=== PATIENT | male | born 1985 | race Caucasian/White ===

== ENCOUNTER 2020-01-23 18:23 | Inpatient (IN) | payer MEDICAID, SELFPAY ==
[2020-01-23 18:30] VITALS: BMI 22.1
--- NOTE | 2020-01-23 18:34 | W.ED.PSYCH ---
HPI - Psych General: Chief Complaint: Psychiatric Symptoms Stated Complaint: mhe/substance abuse Time Seen by Provider: 01/23/20 18:27 History of Present Illness: HPI Narrative: Patient is a 34-year-old male who was brought in by his mental health counselor for psychiatric symptoms. Mental health counselor is filling out paperwork for a 96-hour hold on patient. Patient has a history of drug abuse and drug induced psychosis. 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 Patient does not have any real recollection of why he naked and passed out on the floor. He says he just knows he woke up in the police and family in the mental health counselor were there in the room with him. Patient admits to using methamphetamines 2 days ago. He also endorses some depression and lack of sleep. He describes seeing people out in his words watching him and then he chases them away. He says these people who watch him do it to scare him because he knows some information that he should not. Patient also says he has had multiple episodes where he passes out and sees his life play out in his mind and also sees the future. He denies any SI or HI currently. He has had suicidal thoughts in the past. Patient also endorses marijuana use. Associated symptoms: Reports visual hallucinations (Place people in the fox watching him. He denies other hallucinations and says that they are actual real people.), delusions and depression; Deny homicidal ideation or suicidal ideation Review of Systems Const: Denies: fever(s), chills or fatigue Eyes: Denies: change in vision or eye discomfort ENMT: Denies: throat pain, odynophagia, nasal discharge or nasal congestion Card: Denies: chest pain, palpitations, edema, swelling of feet/ankles, dyspnea on exertion or orthopnea Resp: Denies: dyspnea, productive cough or non-productive cough GI: Denies: abdominal pain, nausea, vomiting, diarrhea, constipation or hematochezia : Denies: flank pain, difficulty urinating, dysuria or hematuria Musc: Denies: neck pain, back pain or extremity swelling Skin/Breast: Denies: rash or new lesions Neuro: Denies: headache(s), numbness in extremities or weakness in extremities Psych: Reports: depression, sleeping less, paranoia (He says people in the fox watching him and that he does rand them away. He believes there actually real people and hallucinations.), visual hallucinations (Place people in the fox watching him. He denies other hallucinations and says that they are actual real people.) and tactile hallucinations (He has had the sensation that something inside of him is moving up from his hand up his arm in into his head.); Denies: suicidal ideation or homicidal ideation PFSH ED PFSH: Social History Smoking and tobacco status: current every day smoker Physical Exam Const: COMMON NORMALS: no acute distress, patient oriented x3 and alert GENERAL APPEARANCE: cooperative HENMT: COMMON NORMALS: normocephalic HEAD & SCALP: normocephalic MOUTH: Normal oral and palatal mucosa present THROAT: posterior oropharynx normal and uvula midline Eye: COMMON NORMALS: Equal, round and reactive pupils present PUPIL: Yes Equal, round and reactive pupils present Neck/C-Spine: COMMON NORMALS: supple GENERAL: Yes normal visual inspection Resp: COMMON NORMALS: normal respiratory effort, No retractions, No use of accessory muscles and clear to auscultation bilaterally AUSCULTATION: clear to auscultation bilaterally Cardio: COMMON NORMALS: regular rate, regular rhythm, S1 normal heart sound present, S2 normal heart sound present, No gallops present (Cardio), No clicks present (Cardio), No murmurs present (Cardio) and Peripheral pulses 2+ throughout RATE: regular rate RHYTHM: regular rhythm HEART SOUNDS: S1 normal heart sound present and S2 normal heart sound present PERIPHERAL PULSES: Peripheral pulses 2+ throughout GI: COMMON NORMALS: Normal to inspection, nondistended, normoactive bowel sounds present, Soft to palpation, non-tender and no masses PALPATION: Yes Soft to palpation : COMMON NORMALS: Yes no CVA tenderness BLADDER/KIDNEY EXAM: Yes no CVA tenderness Back/Pelvis: COMMON NORMALS: no CVA tenderness Extremity: COMMON NORMALS: normal to inspection and no pedal edema Neuro: COMMON NORMALS: patient oriented x3, CN's II-XII intact bilaterally, moves all extremities, no focal motor deficits and no sensory deficits noted SENSORIUM/ORIENTATION: Yes alert SENSORY EXAM: Yes extremities (intact) MOTOR EXAM: 5/5 motor strength present throughout Psych: ATTITUDE: Yes Other attitude/behavior findings present (Psych) (Hyper) ACTIVITY/MOTOR BEHAVIOR: Yes appropriate eye contact, Yes hyperactivity and Yes restless SPEECH: Yes rapid MOOD & AFFECT: Yes elevated mood THOUGHT PROCESS: racing thoughts THOUGHT CONTENT: Yes delusions Delusional thought content details: paranoid (people in fox watching him) and Yes Hallucination(s) present visual (people in fox watching him. visions of his life play out and also has seen future. ) and tactile (sensation of something under his skin moving up arm and into head) ATTENTION/CONCENTRATION: Yes attention grossly intact and Yes concentration grossly intact MEMORY/COGNITION: Yes memory grossly intact and Yes cognition grossly impaired INSIGHT: Poor insight present (Psych) (Patient was making jokes about needing more drugs during evaluation.) JUDGEMENT: Poor judgement present (Psych) (Patient appears to be under the influence some current drugs currently.) Skin: COMMON NORMALS: no rashes or lesions noted GENERAL SKIN EXAM: no rashes or lesions noted and dry skin MDM - Psych MDM Narrative: Medical decision making narrative: Patient is a 34-year-old male who comes to the ED for mental health evaluation and was placed on a 96-hour hold. All paperwork was completed. Patient currently experiencing some acute psychosis possibly drug-induced. Patient was found in a health that he was working on passed out and naked on the floor. He talks about people watching him in the fox and how he has visions of his life events and the future. He also describes tactile hallucinations such as something inside his left arm moving up into his head. Labs were performed and urine drug screen was positive for methamphetamines and marijuana. I contacted Dr. Robbins and he accepted the admission to [facility]. Lab Data: Attestation: I reviewed the patient's lab results. Labs: Lab Results 01/23/20 01/23/20 01/23/20 Range/Units 18:37 18:37 19:02 WBC 7.1 (4.0-10.0) 10^3/ uL RBC 4.89 (4.1-5.3) 10^6/u L Hgb 14.6 (11.7-16.6) g/dL Hct 43.2 (42.0-52.0) % MCV 88.3 (80-94) fL MCH 29.9 (28.0-34.0) pg MCHC 33.8 (30.0-36.0) g/dL RDW 12.3 (12.1-15.1) % Plt Count 248 (130-400) 10^3/c mm MPV 10.3 (7.4-10.4) fL Neut % (Auto) 52.8 % Lymph % (Auto) 36.1 % [place] % (Auto) 6.9 % Eos % (Auto) 3.7 % Baso % (Auto) 0.4 % Neut # (Auto) 3.7 (1.8-7.7) 10^3/u L Lymph # (Auto) 2.6 (0.8-4.8) 10^3/u L [place] # (Auto) 0.5 (0.2-0.9) 10^3/u L Eos # (Auto) 0.3 (0.0-0.8) 10^3/u L Baso # (Auto) 0.0 (0.0-0.1) 10^3/u L Nucleated RBC % (a uto) 0 % Nucleated RBCs # 0.0 /100WBC Sodium 139 (136-145) mmol/L Potassium 4.4 (3.5-5.1) mmol/L Chloride 105 (98-107) mmol/L Carbon Dioxide 22 (22-29) mmol/L Anion Gap 16.4 (5-19) BUN 14 (6-20) mg/dL Creatinine 0.9 (0.7-1.2) mg/dL GFR Calculation 96.0 (90-130) mL/min Glucose 108 (65-115) mg/dL Calculated Osmolal ity 285 (285-295) mOsm/k g Calcium 9.6 (8.5-10.5) mg/dL Total Bilirubin 0.7 (0.15-1.2) mg/dL AST 27 (0-40) U/L ALT 19 (0-41) U/L Alkaline Phosphata se 94 (40-130) IU/L Total Protein 6.8 (6.6-8.7) g/dL Albumin 4.6 (3.5-5.2) g/dL Globulin 2.2 (1.3-4.6) g/dL Salicylates < 0.3 L (3-10) mg/dL Urine Opiates Scre en Negative (Negative) ng/mL Acetaminophen < 5.0 L (10-30) ug/mL Ur Barbiturates Sc reen Negative (Negative) ng/mL Ur Phencyclidine S crn Negative (Negative) ng/mL Ur Amphetamines Sc reen Positive H (Negative) ng/mL U Benzodiazepines Scrn Negative (Negative) ng/mL Urine Cocaine Scre en Negative (Negative) ng/mL U Marijuana (THC) Screen Positive H (Negative) ng/mL Ethyl Alcohol < 10 (0-10) mg/dL Discharge Plan Discharge Patient Disposition: Admitted As Inpatient Admit Provider: Tyson Robbins Discharge Date/Time: 01/23/20 22:24 Coding Level of Care Code ED Import/Export Administrator for Michel Fwd Exam Comprehensive
[2020-01-23 18:38] VITALS: BP 138/86; PULSE 66; RESP 20; TEMP 36.9; O2SAT 98
[2020-01-23 18:41] LABS: Basophils % 0.4 %; Eosinophils # 0.3 10^3/uL (0.0-0.8); Eosinophils % 3.7 %; Hematocrit 43.2 % (42.0-52.0); Hemoglobin 14.6 g/dL (11.7-16.6); Lymphocytes # 2.6 10^3/uL (0.8-4.8); Lymphocytes % 36.1 %; Mean Corpuscular HGB Conc 33.8 g/dL (30.0-36.0); Mean Corpuscular Hemoglobin 29.9 pg (28.0-34.0); Mean Corpuscular Volume 88.3 fL (80-94); Mean Platelet Volume 10.3 fL (7.4-10.4); Monocytes # 0.5 10^3/uL (0.2-0.9); Monocytes % 6.9 %; Neutrophils # 3.7 10^3/uL (1.8-7.7); Neutrophils % 52.8 %; Nucleated Red Blood Cells % 0 %; Platelet Count 248 10^3/cmm (130-400); Red Blood Count 4.89 10^6/uL (4.1-5.3); Red Cell Distribution Width 12.3 % (12.1-15.1); White Blood Count 7.1 10^3/uL (4.0-10.0)
[2020-01-23 19:01] LABS: Alanine Aminotransferase 19 U/L (0-41); Albumin Level 4.6 g/dL (3.5-5.2); Alkaline Phosphatase 94 IU/L (40-130); Anion Gap 16.4 (5-19); Blood Urea Nitrogen 14 mg/dL (6-20); Calcium 9.6 mg/dL (8.5-10.5); Carbon Dioxide 22 mmol/L (22-29); Chloride 105 mmol/L (98-107); Globulin 2.2 g/dL (1.3-4.6); Glucose 108 mg/dL (65-115); Osmolality Calculated 285 mOsm/kg (285-295); Potassium 4.4 mmol/L (3.5-5.1); Sodium 139 mmol/L (136-145); Total Bilirubin 0.7 mg/dL (0.15-1.2); Total Protein 6.8 g/dL (6.6-8.7)
[2020-01-23 19:09] LABS: Acetaminophen < 5.0 ug/mL (10-30); Alcohol Level < 10 mg/dL (0-10); Salicylate < 0.3 mg/dL (3-10)
[2020-01-23 19:25] LABS: Aspartate Amino Transferase 27 U/L (0-40)
[2020-01-23 20:06] LABS: Amphetamines Screen Urine Positive (Negative); Barbiturates Screen Urine Negative (Negative); Benzodiazepines Screen Urine Negative (Negative); Cocaine Screen Urine Negative (Negative); Opiate Screen Urine Negative (Negative); PCP Screen Urine Negative (Negative); THC Screen Urine Positive (Negative)
[2020-01-23 22:24] VITALS: BP 138/82; PULSE 74; RESP 24; TEMP 36.7; O2SAT 98
--- NOTE | 2020-01-23 22:30 | PC.NURSE ---
Pt arrived to unit via wheel chair at approximately 2225. Pt noted to be calm and cooperative. Vital signs obtained. Admission by RN. Pt given a copy of his 96 Hour order.
[2020-01-23] MEDS: trazodone 50 mg Tablet PO (22:53)
[2020-01-23] MEDS: hyDROXYzine 25 mg Capsule 50 MG PO (22:54)
[2020-01-24 06:00] VITALS: BP 118/78; PULSE 57; RESP 16; TEMP 36.6; O2SAT 99
[2020-01-24 14:00] VITALS: BP 120/67; PULSE 72; RESP 18; TEMP 36.7; O2SAT 97
--- NOTE | 2020-01-24 14:30 | PM.NHP ---
Providers/Chief Complaint Admitting Physician: Tyson Robbins MD Chief Complaint: mhe/substance abuse HPI [facility] History of Present Illness Addison Tirado is a 34 year old male who presented to the emergency room on a 96-hour hold with his mental health counselor filling out the paperwork. 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 When he woke up the police, his counselor, and some family members were in the room when he came to. He was positive for methamphetamines and did endorse having used recently. He also endorsed having abused other drugs, however denying suicidal or homicidal ideation. He was admitted to the neuro-psychiatric unit for definitive treatment of those issues. This morning he reports that the last few years have been really challenging for him, and he had not used methamphetamines before moving back to [place] in relation to the disintegration of his family. He reports that his ex has basically taken the kids and alienated him from them, and this has made him really angry and at times he has used to quell that anger. He denies any significant treatment in the past. He denies being a person that struggled with depression, anxiety, or any other issues. He reports that when he was maybe 14 years old, he started smoking marijuana, about 15 drinking alcohol, and did not smoke cigarettes until he was old enough to smoke them. He continues to smoke cigarettes daily and had been using marijuana daily, and per his report, functioning very successfully in his work life. 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 They , she got , and there are starting to be issues with her choices with the kids, having them around the frandy that she got by, after making agreements to the contrary, and then using the kids somewhat as tools against him, picking up and leaving to [place], ultimately with his support, but then using the distance against him as they agreed that she would always let them talk to him, and she has been not doing that. He reports that her keeping his kids away and alienating him, has caused moments of him feeling homicidal and angry, and suicidal, though he denies any past suicide attempts. He reports that he had not spoken to his kids in about two years. He reports that after moving back here to [place] he started messing around with methamphetamine occasionally, but when he does it, it can be a problem and he has had episodes of passing out. He reports that he stopped smoking weed because once he had some anger episodes that led to his ex, getting PFA?s. He had to start going to counseling to try to rectify the situation and that has led to them requesting that he stop smoking weed, which has been a source of comfort for him. He denies symptoms of aggression, anger, and difficulties outside of the context of this disintegrated relationship and this alienation syndrome that he describes. PSYCHIATRIC HISTORY: This is his first psychiatric hospitalization. He has had medications prescribed recently in relation to evaluation and treatment, per his agreement, to try to mend his opportunity to have some shared custody with his children, but the medication he reports makes him feel horrible unlike the calming affect that he had with marijuana. SUBSTANCE ABUSE HISTORY: As above. He has had a DUI when he was about 20. FAMILY HISTORY: He endorses mental health issues on both sides of the family, addiction issues on both sides of the family, and two suicide completions on his father?s side of the family. DEVELOPMENTAL HISTORY: He denies any issues related to his mom?s with him or the or delivery. He reported he learned to walk and talk and met his developmental milestones on time, and denied speech therapy, learning support, emotional support, or special education classes. PSYCHOSOCIAL HISTORY: His mother and father were together when he was born, and they remain together. He is the fifth of their six children they had together, four boys and two girls. He reports his childhood was wonderful and denies any emotional, physical, or sexual abuse. He graduated from high school, did a semester in college. 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 He is a heterosexual with his longest relationship being five to six years. He has never been . He has a 6 year old and a 4 ? year old sons. He has never been in the . He reports he does believe in God. He has been in [employer] for about fifteen or sixteen years. Much of the industry he learned from his dad, but he does more than even his dad used to do. He currently has a house, but in trying to connect with his children, take care of some different things, he has not been at that home and has been sometimes crashing with his mom, sometimes staying with girlfriends, but in many ways is not functionally in the home. LEGAL HISTORY: He has been to [facility] a few times, but he has never stayed overnight. He did have a DUI when he was 20 and has had some PFA?s with his relationship with his children?s mother. MEDICAL HISTORY: Denied. Meds NPU Home Medications Medication Instructions Recorded Confirmed Last Taken Type ibuprofen 200 - 800 mg PO PRN 01/23/20 01/23/20 Unknown History tkzycabk-vhe-UJ-lycopen-lutein 1 tab PO DAILY 01/23/20 01/23/20 01/21/20 History [Centrum Silver Men] Allergies Allergy/AdvReac Type Severity Reaction Status Date / Time No Known Allergies Allergy Verified 01/23/20 19:24 PFSH [facility] PFSH: Social History Smoking and tobacco status: current every day smoker Mental Status Exam MSE Comments: This is a well-nourished, well-developed, white male, with adequate dress, grooming, and eye contact with significant tattooing on his back and back of arms. No abnormal movements. Some mild psychomotor retardation. Cooperative with exam in no acute distress. Speech was fairly normal rate and volume. Mood described as irritable and angry; affect congruent. Thought process, organized. Thought content: patient denied any suicidal or homicidal ideation, there were no delusions reported or noted, patient denied any auditory or visual hallucinations. Attention, concentration, and memory appear intact but were not formally tested. He is alert and oriented times three. Insight and judgment are fair and improving. Impulse control limited. Vitals/I&O/Wt Last Vital Signs Temp 98.1 F 01/24/20 14:00 Pulse 72 01/24/20 14:00 Resp 18 01/24/20 14:00 BP 120/67 01/24/20 14:00 Pulse Ox 97 01/24/20 14:00 Weight last 48 hrs Weight 69.853 kg Data NPU : 01/23/20 18:37 01/23/20 18:37 A&P Assessment and plan (1) Adjustment disorder with mixed disturbance of emotions and conduct: Status: Acute (2) Methamphetamine abuse: Status: Acute Additional A&P Information This is a 34 year old, white male, with a significant history of addiction, but a recent history of mental health concerns, mostly adjustment to the difficulties with his ex and alienation from his sons with recent active addictive behavior, who presents on a 96-hour hold, not interested in medication or endorsing any current symptoms. Continue current medications. Encourage individual, group, and milieu therapy. Continue q 15-minute checks for safety. Will work with treatment team to find appropriate discharge and consider whether an outpatient or inpatient drug and alcohol treatment facility would be appropriate. Will evaluate for active lethality and danger to self or others in determining the length of stay on this 96-hour hold. Involuntary Hold Information 96 Hour Hold: 96 Hour Involuntary Admission: Yes 96 Hour Hold Ending Date: 01/29/20 96 Hour Hold Ending Time: 18:24 Attestations N[facility] Medical Necessity Statement*: Inpatient hospitalization is medically necessary, and the clinically appropriate intervention at this time. He will be in the hospital for over two midnights. We will monitor medications and consider initiation of psychiatric medications, and make changes as indicated. Likely length of stay two to four days. Coding Level of Care Code Acute Superintendent Distribution for Michel Buchanan Diagnoses Adjustment disorder with mixed disturbance of emotions and conduct F43.25 Methamphetamine abuse F15.10
[2020-01-24 22:00] VITALS: BP 122/73; PULSE 55; RESP 17; TEMP 37; O2SAT 99
[2020-01-25 06:00] VITALS: BP 122/74; PULSE 60; RESP 17; TEMP 36.6; O2SAT 94
--- NOTE | 2020-01-25 11:51 | PM.NPN ---
Subjective NPU Subjective: Interval history: A fairly lengthy conversation with Addison today reveals a lot of pain in relation to his alienation from his children. He is being straightforward in his acknowledgment of his addiction issues since he has been in [place]. He expressed continued concern about how he ended up naked somewhat doubting that that was the case. We discussed the importance of avoiding methamphetamine at all costs. He expressed a desire to move forward with his life, but identified some economic challenges that he has to face first before he can leave town for some other opportunities he reports exist for him in other areas. He continues to feel that marijuana positively impacts his circumstances and has for many years and that some of the issues recently has been his attempt to stop that altogether. He had some frustrations with lack of control on the unit and his autonomy. We discussed the possibility of discharge tomorrow. Mental Status Exam MSE Comments: This is a well-nourished, well-developed, white male, with adequate dress, grooming, and eye contact with significant tattooing on his back and back of arms. No abnormal movements. Some mild psychomotor retardation. Cooperative with exam in no acute distress. Speech was fairly normal rate and volume. Mood described as irritable; affect congruent with occasional agitation. Thought process, organized. Thought content: patient denied any suicidal or homicidal ideation, there were no delusions reported or noted, patient denied any auditory or visual hallucinations. Attention, concentration, and memory appear intact but were not formally tested. He is alert and oriented times three. Insight and judgment are fair and improving. Impulse control limited, but improving. Vitals/I&O/Wt Last Vital Signs Temp 97.8 F 01/25/20 20:45 Pulse 54 L 01/25/20 20:45 Resp 17 01/25/20 20:45 BP 116/78 01/25/20 20:45 Pulse Ox 98 01/25/20 20:45 Data NPU : 01/23/20 18:37 01/23/20 18:37 A&P Additional A&P Information (1) Adjustment disorder with mixed disturbance of emotions and conduct: (2) Methamphetamine abuse: This is a 34 year old, white male, with a significant history of addiction, but a recent history of mental health concerns, mostly adjustment to the difficulties with his ex and alienation from his sons with recent active addictive behavior, who presents on a 96-hour hold, not interested in medication or endorsing any current symptoms. Continue current medications. Encourage individual, group, and milieu therapy. Continue q 15-minute checks for safety. Will work with treatment team to find appropriate discharge and consider whether an outpatient or inpatient drug and alcohol treatment facility would be appropriate. Will evaluate for active lethality and danger to self or others in determining the length of stay on this 96-hour hold. Involuntary Hold Information 96 Hour Hold: 96 Hour Involuntary Admission: Yes 96 Hour Hold Ending Date: 01/29/20 96 Hour Hold Ending Time: 18:24 Attestations [facility] Medical Necessity Statement*: Inpatient hospitalization is medically necessary, and the clinically appropriate intervention at this time. We will monitor medications and consider initiation of psychiatric medications, and make changes as indicated. Likely length of stay 1-3 days.Tentative plan for discharge tomorrow. Coding Level of Care Code Acute Terrazzo Tile Setter for Michel Buchanan
[2020-01-25] MEDS: nicotine 2 mg Gum BUCCAL ×2 (12:26→18:28)
[2020-01-25 14:00] VITALS: BP 122/74; PULSE 60; RESP 20; TEMP 36.6; O2SAT 94
[2020-01-25 20:45] VITALS: BP 116/78; PULSE 54; RESP 17; TEMP 36.6; O2SAT 98
[2020-01-26 06:00] VITALS: BP 125/64; PULSE 54; RESP 14; TEMP 36.6; O2SAT 98
--- NOTE | 2020-01-26 08:25 | PM.NDC ---
Diagnoses at Discharge Discharge Diagnosis (1) Adjustment disorder with mixed disturbance of emotions and conduct: Status: Acute (2) Methamphetamine abuse: Status: Acute Reason for Visit Reason for Visit: mhe/substance abuse Brief History: History of Present Illness Addison Tirado is a 34 year old male who presented to the emergency room on a 96-hour hold with his mental health counselor filling out the paperwork. 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 When he woke up the police, his counselor, and some family members were in the room when he came to. He was positive for methamphetamines and did endorse having used recently. He also endorsed having abused other drugs, however denying suicidal or homicidal ideation. He was admitted to the neuro-psychiatric unit for definitive treatment of those issues. This morning he reports that the last few years have been really challenging for him, and he had not used methamphetamines before moving back to [place] in relation to the disintegration of his family. He reports that his ex has basically taken the kids and alienated him from them, and this has made him really angry and at times he has used to quell that anger. He denies any significant treatment in the past. He denies being a person that struggled with depression, anxiety, or any other issues. He reports that when he was maybe 14 years old, he started smoking marijuana, about 15 drinking alcohol, and did not smoke cigarettes until he was old enough to smoke them. He continues to smoke cigarettes daily and had been using marijuana daily, and per his report, functioning very successfully in his work life. 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 They , she got , and there are starting to be issues with her choices with the kids, having them around the frandy that she got by, after making agreements to the contrary, and then using the kids somewhat as tools against him, picking up and leaving to [place], ultimately with his support, but then using the distance against him as they agreed that she would always let them talk to him, and she has been not doing that. He reports that her keeping his kids away and alienating him, has caused moments of him feeling homicidal and angry, and suicidal, though he denies any past suicide attempts. He reports that he had not spoken to his kids in about two years. He reports that after moving back here to [place] he started messing around with methamphetamine occasionally, but when he does it, it can be a problem and he has had episodes of passing out. He reports that he stopped smoking weed because once he had some anger episodes that led to his ex, getting PFA?s. He had to start going to counseling to try to rectify the situation and that has led to them requesting that he stop smoking weed, which has been a source of comfort for him. He denies symptoms of aggression, anger, and difficulties outside of the context of this disintegrated relationship and this alienation syndrome that he describes. PSYCHIATRIC HISTORY: This is his first psychiatric hospitalization. He has had medications prescribed recently in relation to evaluation and treatment, per his agreement, to try to mend his opportunity to have some shared custody with his children, but the medication he reports makes him feel horrible unlike the calming affect that he had with marijuana. SUBSTANCE ABUSE HISTORY: As above. He has had a DUI when he was about 20. FAMILY HISTORY: He endorses mental health issues on both sides of the family, addiction issues on both sides of the family, and two suicide completions on his father?s side of the family. DEVELOPMENTAL HISTORY: He denies any issues related to his mom?s with him or the or delivery. He reported he learned to walk and talk and met his developmental milestones on time, and denied speech therapy, learning support, emotional support, or special education classes. PSYCHOSOCIAL HISTORY: His mother and father were together when he was born, and they remain together. He is the fifth of their six children they had together, four boys and two girls. He reports his childhood was wonderful and denies any emotional, physical, or sexual abuse. He graduated from high school, did a semester in college. 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 He is a heterosexual with his longest relationship being five to six years. He has never been . He has a 6 year old and a 4 ? year old sons. He has never been in the . He reports he does believe in God. He has been in [place] for about fifteen or sixteen years. Much of the industry he learned from his dad, but he does more than even his dad used to do. He currently has a house, but in trying to connect with his children, take care of some different things, he has not been at that home and has been sometimes crashing with his mom, sometimes staying with girlfriends, but in many ways is not functionally in the home. LEGAL HISTORY: He has been to half-way a few times, but he has never stayed overnight. He did have a DUI when he was 20 and has had some PFA?s with his relationship with his children?s mother. MEDICAL HISTORY: Denied. Hospital Course Hospital Course Addison presented to the emergency room with long enforcement after they found him naked lying on the floor at a place where he was doing some remodeling. He was put on a 96-hour hold secondary to concerns for suicidal thinking and was admitted to the neuropsychiatric unit for definitive treatment of these issues. On the unit he slowly acclimated to the individual, group and milieu therapies provided. He was open about his situation but somewhat irritated about it as well. He acknowledges active addiction but continues to see himself as the individual who has been very industrious throughout his life. He slowly began to explore what would be necessary to get the methamphetamine back out of his life so that he can return to previous successes. He also was very angry about parental alienation that is occurring to him through his children's mother making it so he has not seen or talked to them in 2 years. He does not want to start any medications. During the hospitalization there were routine laboratory studies which were within normal limits except for a few outliers. Additionally there was a general medical evaluation with was also within normal limits and revealed no new acute processes. Discharge Summary At the time of discharge, lethality and psychosis were absent. Mood and anxiety were well managed and a plan to avoid all drugs of abuse and follow-up with outpatient recommendations was reported. Patient was evaluated and deemed to be absent all credible lethality and had achieved the maximum benefit of the inpatient stay so the patient was discharged. Involuntary Hold Information 96 Hour Hold: 96 Hour Involuntary Admission: Yes 96 Hour Hold Ending Date: 01/29/20 96 Hour Hold Ending Time: 18:24 Mental Status Exam MSE Comments: This is a well-nourished, well-developed, white male, with adequate dress, grooming, and eye contact with significant tattooing on his back and back of arms. No abnormal movements. Resolving psychomotor retardation. Cooperative with exam in no acute distress. Speech was more normal rate and volume. Mood described as much better; affect congruent. Thought process, organized. Thought content: patient denied any suicidal or homicidal ideation, there were no delusions reported or noted, patient denied any auditory or visual hallucinations. Attention, concentration, and memory appear intact but were not formally tested. He is alert and oriented times three. Insight and judgment are fair and improving. Impulse control improving. Discharge Data Vitals: Last Vital Signs Temp 97.9 F 01/26/20 06:00 Pulse 54 L 01/26/20 06:00 Resp 14 01/26/20 06:00 BP 125/64 01/26/20 06:00 Pulse Ox 98 01/26/20 06:00 Discharge Plan Discharge Patient Disposition: Home, Self-Care Condition: Stable Prescriptions: Continued ibuprofen 200 mg Tablet 200 - 800 mg PO PRN RF: 0 Centrum Silver Men 300-600-300 mcg Tablet 1 tab PO DAILY RF: 0 Discharge Orders: Discharge Order (Routine); Ordered 01/26/20 Ordered By: Tyson Robbins Referrals: [facility] [Other] - 1-3 days (you said that you have been going to this place for counseling. of course, you can continue going here. However, other resources will be provided in your discharge information. your counselor might have an idea on where you can go upon discharge for substance abuse treatment. ) [facility] [Outside] - 1-3 days (walk-in hours 7:30a.m.-2:30 p.m. Tuesday through Tuesday. request initial intake during the walk-in hours. ) [facility] [Outside] - 1-3 days (for substance abuse treatment, you cou could go to [facility] ([facility] They have residential care and outpatient treatment for [place] residents. You said that you have residency in [place] as well as [place] so I suspect you could provide the [place] address where you have been staying and qualify. The intake form was given to you so you could go ahead a fill it out and drop it off at the facility. You will most likely be put on a waiting list. ) Discharge Diet: Regular Discharge Activity: Resume usual activity Discharge Date/Time: 01/26/20 09:30 Discharge Attestations NPU Time Spent in Discharge Care*: less than 30 min Specific Discharge Activities: Specific discharge activities: educating patient, discussing with family preservation caseworker/social workers/dc planners, documenting/other paperwork and evaluating patient/reviewing data Coding Level of Care Code Acute Supervisor Insulation for [facility] Fwd Diagnoses Adjustment disorder with mixed disturbance of emotions and conduct F43.25 Methamphetamine abuse F15.10
[2020-01-26 09:18] VITALS: BP 125/64; PULSE 54; RESP 14; TEMP 36.6; O2SAT 98
--- NOTE | 2020-01-28 12:06 | PC.RESP ---
Smoking Cessation information and a schedule of classes sent to patient.
== END 2020-01-26 09:30 | disposition home or self-care (01) | DRG 882 ==
LOC: ER 19:00 → NP 20:53
PROVIDERS: Emergency Medicine; Admitting Provider Psychiatry & Neurology Psychiatry; Visit Provider Psychiatry & Neurology Psychiatry
DX: F43.25 Adjustment disorder with mixed disturbance of emotions and conduct (principal); F15.10 Other stimulant abuse, uncomplicated; F17.210 Nicotine dependence, cigarettes, uncomplicated
CPT/HCPCS: 12345; 36415; 80053; 80306; 80307; 85025; 99284; 99285; A9270